=== PATIENT | female | born 1970 | race Caucasian/White ===

== ENCOUNTER 2023-12-21 16:10 | Outpatient (CLI) | payer OTHER, SELFPAY | END 2023-12-21 16:11 | disposition home or self-care (01) | LOC: AMB 12-22 09:45 | PROVIDERS: Visit Provider Emergency Medicine | DX: S09.93XA Unspecified injury of face, initial encounter (principal); V18.0XXA Pedal cycle driver injured in noncollision transport accident in nontraffic accident, initial encounter; Y93.55 Activity, bike riding; Y92.89 Other specified places as the place of occurrence of the external cause | CPT/HCPCS: A0425; A0433 ==

== ENCOUNTER 2023-12-21 16:45 | Emergency (ER) | payer OTHER, SELFPAY ==
[2023-12-21 16:45] VITALS: BP 117/88; PULSE 69; RESP 16; TEMP 36.3; O2SAT 98; BMI 25.7
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
--- NOTE | 2023-12-21 17:54 | ED.NURSE ---
Blood on pt face cleaned up by myself and tech. Gently cleansed, avoided pt mouth and areas she was reporting to be in pain.
[2023-12-21] MEDS: fentaNYL 100 MCG/2 ML inj 50 MCG IVP (18:10)
--- NOTE | 2023-12-21 18:54 | ED.NURSE ---
pt report given to [facility] RN.
== END 2023-12-21 18:28 | disposition other institution (70) ==
PROVIDERS: Emergency Provider Emergency Medicine
DX: S02.40CA Maxillary fracture, right side, initial encounter for closed fracture (principal); S02.5XXA Fracture of tooth (traumatic), initial encounter for closed fracture; V17.0XXA Pedal cycle driver injured in collision with fixed or stationary object in nontraffic accident, initial encounter; S60.511A Abrasion of right hand, initial encounter
CPT/HCPCS: 70450; 70486; 72125; 96365; 99285; 99291; G0390; J3010

== ENCOUNTER 2023-12-21 18:07 | Outpatient (CLI) | payer OTHER, SELFPAY | END 2023-12-21 18:08 | disposition home or self-care (01) | LOC: AMB 12-22 11:43 | PROVIDERS: Visit Provider Emergency Medicine | DX: S09.93XA Unspecified injury of face, initial encounter (principal); V18.0XXA Pedal cycle driver injured in noncollision transport accident in nontraffic accident, initial encounter; Y93.55 Activity, bike riding; Y92.9 Unspecified place or not applicable | CPT/HCPCS: A0425; A0426 ==